=== PATIENT | female | born 1945 | race Caucasian/White ===

== ENCOUNTER 2017-10-28 11:45 | Emergency (ER) | payer MEDICARE, BC ==
[~2017-10-28] VITALS: Ht 160 cm; Wt 68.0 kg
[2017-10-28] MEDS ORDERED: Omeprazole20 M1 (11:58)
[2017-10-28] MEDS ORDERED: ACYC400 PO (11:58)
[2017-10-28] MEDS ORDERED: Spironolactone1 EACH PO (11:58)
[2017-10-28] MEDS ORDERED: CARV25 PO (11:58)
[2017-10-28] MEDS ORDERED: LOSARTAN POTAS100 MG PO (11:58)
[2017-10-28] MEDS ORDERED: RANI150 PO (11:59)
[2017-10-28] MEDS ORDERED: POTCIT10 (11:59)
[2017-10-28] MEDS ORDERED: Voltaren100 GM TOP (12:24)
[2017-10-28] MEDS ORDERED: Robaxin500 MG PO (12:24)
== END 2017-10-28 12:36 | disposition home or self-care (01) ==
LOC: ER 11:45
DX: M54.42 Lumbago with sciatica, left side (principal)
CPT/HCPCS: 99283

== ENCOUNTER → 2019-01-12 | Outpatient (CLI) | payer MEDICARE, BC ==
[~2019-01-12] MED LIST: ACYC400 PO; CARV25 PO; LOSARTAN POTAS100 MG PO; Omeprazole20 M1; POTCIT10; RANI150 PO; Robaxin500 MG PO; Spironolactone1 EACH PO; Voltaren100 GM TOP
== END ==
LOC: PLD 09:36 → LAB SHORT 09:36
DX: D48.5 Neoplasm of uncertain behavior of skin (principal)
CPT/HCPCS: 88305

== ENCOUNTER 2020-02-14 08:40 | Day surgery (SDC) | payer MEDICARE, BC | END 2020-02-14 22:42 | disposition home or self-care (01) | LOC: US 08:40 | DX: C82.01 Follicular lymphoma grade I, lymph nodes of head, face, and neck (principal); C82.11 Follicular lymphoma grade II, lymph nodes of head, face, and neck | CPT/HCPCS: 38505; 76942; 88305; 88341; 88342 ==

== ENCOUNTER → 2020-11-27 | Outpatient (CLI) | payer MEDICARE, BC | END | disposition home or self-care (01) | LOC: PLD 08:36 → LAB SHORT 08:36 | DX: D48.5 Neoplasm of uncertain behavior of skin (principal) | CPT/HCPCS: 88305 ==

== ENCOUNTER → 2021-08-13 | Outpatient (CLI) | payer MEDICARE, BC | END | disposition home or self-care (01) | LOC: LAB SHORT 15:10 → LAB 15:10 | DX: D04.72 Carcinoma in situ of skin of left lower limb, including hip (principal) | CPT/HCPCS: 88305 ==

== ENCOUNTER → 2022-09-08 | Outpatient (CLI) | payer MEDICARE, BC ==
[2022-09-08 19:58] LABS: Albumin, Blood 4.2 g/dL (3.4-5.0); Albumin/Globulin Ratio 1.5 (0.8-1.8); Bilirubin, Total 0.4 mg/dL (0.1-1.0); Bun/Creatinine Ratio 34.1 (12.0-20.0); Calcium, Blood 9.8 mg/dL (8.5-10.1); Creatinine, Blood 0.7 mg/dL (0.40-1.00); Globulin, Blood 2.8 g/dL (2.2-4.0); Phosphorus, Blood 3.4 mg/dL (2.5-4.9); Potassium, Blood 3.8 mmol/L (3.5-5.5)
== END | disposition home or self-care (01) ==
LOC: LAB 18:13 → LAB SHORT 18:13
PROVIDERS: Internal Medicine Hematology & Oncology
DX: C82.09 Follicular lymphoma grade I, extranodal and solid organ sites (principal); C85.90 Non-Hodgkin lymphoma, unspecified, unspecified site
CPT/HCPCS: 80053; 83615; 84100